=== PATIENT | male | born 1940 | race Caucasian/White ===

== ENCOUNTER 2020-05-03 15:14 | Inpatient (IN) | payer MEDICARE ==
[~2020-05-03] VITALS: Ht 180.3 cm; Wt 106.4 kg
--- NOTE | ~2020-05-03 | EMS ---
[place] [id number] EMS Patient Care Report Name: SHERRY BROOKS Room #: REG SHANICE Fairchild#: [id number] Admission: 05/03/20 Attend Phys: Discharge: Date of : 42 Report #: [id number] THIS REPORT FOR: //name// Report Transmitted: 05/03/2020 16:41 EMS Care Summary [place], [place]/[facility] Incident [id number] @ 05/03/2020 14:31 Incident Location [address] [place] [address] Patient SHERRY BROOKS Male, 79 Years 1940 Patient Address [address] [place] [address] Patient History Hypertension (HTN),Restless Leg Syndrome, Patient Allergies No known allergies, Patient Medications Propranolol, Gabapentin, Hydrochlorothiazide (Hctz), Allopurinol, Chief Complaint ALOC Disposition Transported No Lights/[place] Dispatch Reason Sick Person Transported To [facility] Narrative DISPATCHED EMERGENCY ON A SICK. PUMPER 45 ON SCENE UPON ARRIVAL. 79 Y/O MALE LAYING SUPINE IN BED APPEARING IN NO IMMEDIATE DISTRESS. GCS 11. PT IS NON VERBAL. PT'S SON STATES THAT HE LAST SPOKE WITH PT ON SUNDAY AND CAME TO CHECK ON HIM TODAY AND FOUND HIM IN THE STATE HE IS IN. PT [place] [address] EMS Patient Care Report Name: SHERRY BROOKS Room #: REG [facility].#: [id number] Admission: 05/03/20 Attend Phys: Discharge: Date of : 42 Report #: [id number] AND AMBULATE ON HIS OWN. MOVED WITHOUT INCIDENT TO AMBULANCE VIA STRETCHER. PLACED ON MONITOR. V/S'S OBTAINED. IV ESTABLISHED. TRANSPORTED TO [facility]. REASSESSED ENROUTE. REMAINS GCS 11 AND NON VERBAL. V/S'S CONTINUOUSLY MONITORED ENROUTE. REPORT CALLED TO HOSPITAL. MOVED WITHOUT INCIDENT TO ER HOSPITAL BED 10. PT CARE TRANSFERRED TO ED RN. Initial Vitals @14:53P: 78,R: 16,BP: 187/107,Pain: 0/10,GCS: 11,SpO2: 97,Revised Trauma: 11, @15:02P: 81,R: 18,BP: 164/98,Pain: 0/10,GCS: 15,CO: 0,SpO2: 95,Revised Trauma: 12, @PTAP: 80,GCS: 11,Glucose: 127, Assessments @14:50MENTAL:Confused,SKIN:HEENT:Eyes: Right Pupil: 3-mm,Eyes: Left Pupil: 3-mm,LUNG SOUNDS:ABDOMEN:PELVIS//GI:EXTREMITIES:Capillary Refill: Right Upper: < 2 Sec,Capillary Refill: Left Upper: < 2 Sec,Capillary Refill: Right Lower: < 2 Sec,Capillary Refill: Left Lower: < 2 Sec,PULSE:Radial: 2+ Normal,NEURO:@15:05 Impression Altered Mental Status Procedures @14:543-Lead ECGResponse: UnchangedSucceeded@14:50ALS AssessmentResponse: UnchangedSucceeded@14:51StretcherResponse: Unchanged@14:55Saline Lock 10cc (18 ga) Site: Antecubital-LeftResponse: UnchangedSucceeded Timeline HOME CARE PHYSICAL THERAPIST,BP: / M,PULSE: 80,RR: R,SPO2: Ox,ETCO2: ,B,PAIN: ,GCS: 11, 14:30,Call Received 14:30,Dispatch Notified 14:31,Dispatched 14:36,En Route 14:47,On Scene 14:50,At Patient 14:50,ALS Assessment,Response: UnchangedSucceeded, 14:51,Stretcher,Response: Unchanged 14:53,BP: 187/107 M,PULSE: 78,RR: 16 R,SPO2: 97 Ox,ETCO2: ,BG: ,PAIN: 0,GCS: 11, 14:54,3-Lead ECG,Response: UnchangedSucceeded, 14:55,Saline Lock 10cc 18 ga Site: Antecubital-Left,Response: UnchangedSucceeded, 14:58,Depart Scene 15:02,BP: 164/98 M,PULSE: 81,RR: 18 R,SPO2: 95 Ox,ETCO2: ,BG: ,PAIN: 0,GCS: 15, 15:09,At Destination 15:27,Call Closed [address] [address] EMS Patient Care Report Name: SHERRY BROOKS Room #: REG SHANICE Fairchild#: [id number] Admission: 05/03/20 Attend Phys: Discharge: Date of : 42 Report #: [id number] Disclaimer v1.1 Copyright 2020 [employer] This EMS Care Summary contains data elements from the applicable legal record (which may be displayed differently). It is designed to provide pertinent information for the following purposes: continuity of care, clinical quality, and state data reporting. The complete legal record is available to ED staff and administrators of the receiving hospital in [employer] Patient Tracker. All data is provided "as is."
[2020-05-03 15:15] VITALS: BP 205/145
[2020-05-03 15:45] LABS: BASOPHILS 0.4 % (0.0-2.0); EOSINOPHILS 0.2 % (0.0-3.0); LYMPHOCYTES 14.2 % (24.0-44.0)
[2020-05-03 15:47] LABS: ABSOLUTE NEUTROPHILS 9.6 thou/uL (1.4-8.2); HEMATOCRIT 52.9 % (42.0-52.0); HEMOGLOBIN 18.3 gm/dL (14.0-18.0); MCH 31.7 pg (26.0-34.0); MCHC 34.7 g/dL (28.0-37.0); MCV 91.3 fL (80.0-100.0); PLATELET COUNT 232 thou/uL (150-400); POLYS 79.2 % (36.0-66.0); WBC 12.1 thou/uL (4.0-11.0)
--- NOTE | 2020-05-03 15:49 | NUR ---
PT RETURNED FROM CT
[2020-05-03 15:59] LABS: CALCIUM 9.6 mg/dL (8.5-10.1); CREATININE 1.6 mg/dL (0.7-1.3); POTASSIUM 3.3 mmol/L (3.5-5.1)
[2020-05-03 16:05] LABS: ALBUMIN 3.9 g/dL (3.4-5.0); DIRECT BILIRUBIN 0.3 mg/dL (<0.1-0.2); TOTAL BILIRUBIN 1.8 mg/dL (0.2-1.0); TOTAL PROTEIN 8.2 g/dL (6.4-8.2)
[2020-05-03] MEDS ORDERED: PROPRANOLOL 4040 M1 PO (17:26)
[2020-05-03] MEDS ORDERED: HYDROCHLOROTHIA25 M2 PO (17:26)
[2020-05-03] MEDS ORDERED: NEURONTIN300 MG PO (17:27)
[2020-05-03] MEDS ORDERED: ALLOPURINOL 10100 M3 PO (17:27)
[2020-05-03 17:53] LABS: URINE BILIRUBIN NEGATIVE (Negative); URINE BLOOD NEGATIVE (Negative); URINE CLARITY CLEAR; URINE COLOR YELLOW; URINE GLUCOSE-RANDOM* NEGATIVE (Negative); URINE KETONES 1+ (Negative); URINE LEUKOCYTES-REFLEX NEGATIVE (Negative); URINE NITRITE-REFLEX NEGATIVE (Negative); URINE PROTEIN (DIPSTICK) 2+ (Negative); URINE SPECIFIC GRAVITY >= 1.030 (1.005-1.035)
[2020-05-03 18:08] LABS: BACTERIA-REFLEX 1-9 Few /HPF (None Seen); CASTS None Seen /LPF (None Seen); CRYSTALS None Seen /LPF (None Seen); SQUAMOUS None Seen /LPF (0-3); URINE RBC None Seen /HPF (0-2); URINE WBC-REFLEX 0-5 Rare /HPF (0-5)
[2020-05-03 20:47] VITALS: BP 185/95
[2020-05-03 23:33] VITALS: BP 166/80
[2020-05-04 04:06] LABS: GLYCOHEMOGLOBIN (HGB A1C) 5.8 % (4.8-5.6)
[2020-05-04 04:32] LABS: CHOLESTEROL 223 mg/dL (<200); HDL CHOLESTEROL 28 mg/dL (>40); LDL CHOLESTEROL 159 mg/dL (<100); TRIGLYCERIDE 184 mg/dL (<150); VLDL 37 mg/dL (<40)
[2020-05-04 04:40] VITALS: BP 171/78
[2020-05-04 04:43] LABS: SERUM ASSESSMENT Clear
--- NOTE | 2020-05-04 05:01 | NUR ---
PATIENT ADMITTED FROM ER. INITIAL NIH 20. REVIEWED AND ASSISTED WITH ASSESSMENT AT ADMISSION AND 0400. I AGREE WITH MIGDALIA DICKERSON RN ASSESMENT. PER Beckie HO RN CHARGE NURSE.
--- NOTE | 2020-05-04 06:39 | NUR ---
ADMIT PT ADMITTED VIA ER WITH SUBACUTE CVA VSS, PT ALERT AND AWAKE NIH SCORE OF 20 AT ADMISSION AND AGAIN AT 4 AM. TELE INTACT READING SR. PT REMAINS NPO UNTIL SWALLOW EVAL PT FLACCID ON RIGHT SIDE UNABLE TO HOLD UP ARM OR LEG. DID NOT HAVE A BLINK REFLEX ON RIGHT EYE BUT DID ON LEFT ATTEMPTING TO FOLLOW COMMANDS ABLE TO SMILE WITH SLIGHT RIGHT SIDED FACIAL DROOP UNABLE TO TRACK WITH HIS EYES BUT DID WINK FOR YES ONE TIME. SLIGHT WHEEZING NOTED TO LUNGS INCONTINENT OF URINE. SKIN C/D/I NO OPEN AREAS OR AREAS OF BREAKDOWN NOTED CONTINUE TO MONITOR.
--- NOTE | 2020-05-04 07:19 | EKG ---
[facility] [place] [address] ELECTROCARDIOGRAM REPORT Name: SHERRY BROOKS Room #: 214-P ADM IN M.R.#: [id number] Admission: 05/03/20 Attend Phys: Louis Chawla MD Discharge: Date of : 42 Report #: [id number] THIS REPORT FOR: cc: CARLOS - Paty family physician/PCP CARLOS - Paty family physician/PCP Scott Rasheed MD [facility] THIS REPORT FOR: //name// [facility] ED Test Date: 2020-05-03 Test Time: 17:29:34 Pat Name: SHERRY BROOKS Department: Room: 214 Gender: M Job Molder: no : 1940 Requested By: Darby Pedersen Order Number: [id number] MD: Scott Rasheed Measurements Intervals Heath Rate: 75 P: 7 MS: 203 QRS: -18 QRSD: 97 T: 2 QT: 421 QTc: 471 Interpretive Statements Sinus rhythm No previous ECG available for comparison Electronically Signed On 05-04-2020 7:19:03 DUMP TRUCK DRIVER by Scott Rasheed [email or web address] <ELECTRONICALLY SIGNED> By: Scott Rasheed MD, FACC 05/04/20 0719 28 28 Scott Rasheed MD, FACC /EPI
[2020-05-04 09:26] LABS: INR 1.1; PROTIME 11.5 Seconds (9.3-11.4)
--- NOTE | 2020-05-04 10:34 | NUR ---
WOUND CONSULT; RN TODAY STATED SHE WAS NOT AWARE WHY WOUND CARE WAS CONSULTED STATING, "THE PATIENT HAS NO WOUNDS". RECOMMENDATIONS; I WILL REMOVE THE CONSULT/RECONSULT IF NEEDED. DISCUSSED WITH RN
[2020-05-04 10:54] VITALS: BP 146/97
--- NOTE | 2020-05-04 11:20 | NUR ---
Case opened to follow for dc planning. Pt admitted with CVA and neuro w/u is in progress along with ST/OT/PT/Rehab evaluations. Pt is flaccid on the Rt side and aphasic. He is NPO at this time. He has significant hearing impairment and usually reads lips. He does have 30% hearing in one ear with a hearing aid which his son will try to bring in. Pt sleeping this am and cm assessment completed via phone wih the pt's son Nabor who lives next door to him. Nabor reports that the pt lives indep in his home with his 15 yr old doggie. Nabor checks on him daily and does any shopping,errands or driving pt to appointments. The pt has two dtrs as well that are involved. His son reports that he does not have a living will or DPOA in place. He has made his wishes known to his children. The pt has 6 steps in from the front door but only one through the garage. He has one step in the main living area (sunken living room). He is normally indep with gait and adl's as well as yard work. 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 The pt's pcp is Dr. Ezekiel Goel who he sees yearly. He sees his kidney dr often and he manages his medications. Support provided and cm role introduced. Pt's son is awaiting further imput from Neuro and he is aware that this was a "large stroke". He is concerned about staff being aware of the extent of his hearing impairment as they try to communicate with the pt (especially with masks on). Unit Rn updated. Awaiting additional evaluations and care team recommendations regarding dc planning needs, ie, acute rehab, snf, and or palliative care.
--- NOTE | 2020-05-04 18:14 | NUR ---
ASSUMED CARE OF PT AT SHIFT CHANGE. ASSESSMENTS CHARTED. MEDS GIVEN PER AUG. PT AWAKE MOST OF SHIFT. MAKES EYE CONTACT WHEN SPOKEN TO. DOES NOT FOLLOW COMMANDS. RIGHT SIDE FLACCID, SCORING 21 ON NIH SCALE. FAILED SWALLOW EVAL, STRICTLY NPO. SON DELIBERATING CHANGING CODE STATUS TO DNR. WILL CONTINUE TO MONITOR AND FOLLOW POC.
[2020-05-04 19:05] VITALS: BP 183/107
[2020-05-04 19:06] VITALS: BP 199/101
[2020-05-04 20:00] VITALS: BP 175/103
[2020-05-05] VITALS (9 sets, daily range): BP systolic 143–186; BP diastolic 90–106
--- NOTE | 2020-05-05 04:17 | NUR ---
assumed pt care at the change of shift, pt is awake, alert and oriented, assessments as charted, meds given as per mar, denies having concerns, bp soft this am, asymptomatic, plan to dc to ignite today
--- NOTE | 2020-05-05 06:05 | NUR ---
Assumed pt care at the change of shift, pt is awake, assessments as chartednih scale as documented, sr on the monitor, change in code status noted, remains stable overnight, no acute events, will pass on report
--- NOTE | 2020-05-05 09:41 | NUR ---
PT. WITH PT AT BEDSIDE, HAS OVERALL TONE BUT CONTINUES TO BE FLACCID ON THE RIGHT SIDE. HE DOES RESPOND WITH HIS RIGHT FOOT BY WITHDRAWING WHEN TICKLED. HE HELD A SITTING POSITON FOR A FEW MINUTES THIS AM WITH PT. DOES FOLLOW EYE CONTACT WHEN SPOKEN TO. DOES FOLLOW SIMPLE COMMANDS THIS AM, ASKED TO LOOK OUT WINDOW AND HE DID.
--- NOTE | 2020-05-05 13:08 | 2DMMODE ---
[facility] [address] [place] [address] 2 D/M-MODE ECHOCARDIOGRAM Name: SHERRY BROOKS Room #: 214-P ADM IN M.R.#: [id number] Admission: 05/03/20 Attend Phys: Louis Chawla MD Discharge: Date of : 42 Report #: [id number] THIS REPORT FOR: cc: FAM - No family physician/PCP FAM - No family physician/PCP Reginald Mahan MD ~ APPROVED REPORT Study performed: 05/05/2020 12:14:23 EXAM: Comprehensive 2D, Doppler, and color-flow Echocardiogram Patient Location: Bedside Room #: 214 Status: routine BSA: 2.32 HR: 81 bpm BP: 143/90 mmHg Rhythm: NSR Other Information Study Quality: Technically DifficultTechnically Limited Technically limited study due to inability to position patient, limited imaging windows. Indications CVA/TIA Echo Enhancing Agent Indication: Rule out Shunt Agent(s) / Amount(s) Used: Agitated Saline 7 cc Aortic Valve AoV Peak Lito.: 0.98 m/s AO Peak Gr.: 3.86 mmHg LVOT Max P.08 mmHg LVOT Max V: 1.01 m/s Mitral Valve E/A Ratio: 0.7 MV Decel. Time: 335.21 ms MV E Max Lito.: 0.69 m/s MV A Lito.: 1.00 m/s MV PHT: 97.21 ms IVRT: 129.18 ms [facility] [address] [place] [address] 2 D/M-MODE ECHOCARDIOGRAM Name: SHERRY BROOKS Room #: 214-P ADM IN M.R.#: [id number] Admission: 05/03/20 Attend Phys: Dillan Johnston Discharge: Date of : 41 Report #: [id number] Pulmonary Vein P Vein S: 0.46 m/s P Vein A: 0.28 m/s P Vein D: 0.34 m/s P Vein A Dur.: 110.7 msec P Vein S/D Ratio: 1.35 Left Ventricle The left ventricle is normal size. There is normal LV segmental wall motion. There is normal left ventricular wall thickness. Left ventricular systolic function is normal. The left ventricular ejection fraction is within the normal range. LVEF is 55-60%. Grade I - abnormal relaxation pattern. Right Ventricle The right ventricle is normal size. The right ventricular systolic function is normal. Atria The left atrium size is normal. Interatrial septum is intact without evidence of ASD or PFO. The right atrium size is normal. Aortic Valve The aortic valve is normal in structure. No aortic regurgitation is present. There is no aortic valvular stenosis. Mitral Valve The mitral valve is normal in structure. There is no mitral valve regurgitation noted. No evidence of mitral valve stenosis. Tricuspid Valve The tricuspid valve is normal in structure. There is no tricuspid valve regurgitation noted. Pulmonic Valve The pulmonary valve is normal in structure. There is no pulmonic valvular regurgitation. Great Vessels The aortic root is normal in size. IVC is not well visualized. Pericardium There is no pericardial effusion. <Conclusion> The left ventricle is normal size. LVEF is 55-60%. [facility] [address] [place] [address] 2 D/M-MODE ECHOCARDIOGRAM Name: SHERRY BROOKS Room #: 214-P ADM IN [facility].#: [id number] Admission: 05/03/20 Attend Phys: Dillan Johnston Discharge: Date of : 42 Report #: [id number] The aortic valve is normal in structure. The mitral valve is normal in structure. The tricuspid valve is normal in structure. The pulmonary valve is normal in structure. There is no pericardial effusion. Interatrial septum is intact without evidence of ASD or PFO. <ELECTRONICALLY SIGNED> By: Reginald Mahan MD 05/05/20 1308 1308 07 Reginald Mahan MD /INF
--- NOTE | 2020-05-06 03:49 | NUR ---
BP ELEVATED.LABETALOL AND METOPROLOL ON BOARD.TURN Q2 HOURS.MONITOR SHOWS SR.POC CONTINUED.
[2020-05-06 04:16] VITALS: BP 193/105
[2020-05-06 07:40] VITALS: BP 189/107
--- NOTE | 2020-05-06 11:04 | HC ---
[facility] [address] [place] [address] CONSULTATION Name: SHERRY BROOKS Room #: 214-P ADM IN M.R.#: [id number] Admission: 05/03/20 Attend Phys: Louis Chawla MD Discharge: Date of : 42 Report #: [id number] THIS REPORT FOR: cc: FAM - No family physician/PCP FAM - No family physician/PCP Oscar Villafuerte MD ~ DATE OF SERVICE: 05/04/2020 We were asked by Dr. Chawla to see the patient. HISTORY OF PRESENT ILLNESS: The patient is a 79-year-old with a recent stroke. The patient was admitted 05/03/2020. He presented to the Emergency Department via [facility]. The patient is aphasic and the history is obtained through the chart. According to the Emergency Department note, the patient's son found the patient unresponsive in his bed. The patient had been last seen to be normal 3 days prior by the son. Since admission, the patient has had imaging studies that show a moderate sized area of decreased attenuation in the left frontal lobe and left basal ganglia suggestive of a subacute infarct without mass effect or hemorrhage. 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 MRI/MRA shows similar findings and the intracranial carotids with low flow on the left side and normal flow on the right, but the MRI/MRA does not show the cervical portion of the carotid artery. PAST HISTORY: Significant for hypertension and restless leg. MEDICATIONS AT HOME: Includes propranolol, hydrochlorothiazide, gabapentin, and allopurinol. ALLERGIES: None known. REVIEW OF SYSTEMS: I have no reason to defer with the chart and patient is aphasic. PHYSICAL EXAMINATION: GENERAL: The patient is sitting in bed. He appears alert, but is aphasic. VITAL SIGNS: Temperature 36.2, heart rate 71, respiratory rate 16, blood pressure 146/97, pulse ox 98 on room air. HEENT: No scleral icterus, no arcus. NECK: No mass. I hear no bruit. CHEST: Clear to auscultation. HEART: Rhythm regular. [facility] [address] [place] [address] CONSULTATION Name: SHERRY BROOKS ALEA Room #: 214-P [facility] IN M.R.#: [id number] Admission: 05/03/20 Attend Phys: Louis Chawla MD Discharge: Date of : 42 Report #: [id number] ABDOMEN: Soft. EXTREMITIES: No clubbing, cyanosis or edema, 2+ dorsalis pedis pulses distally. SKIN: No rash or infection. NEUROLOGIC: No motion on the right arm, left leg has some motion, but the patient cannot plantar flex forcibly on the right side. Left side appears normal for strength and motion in upper and lower extremities. As mentioned, the patient is aphasic, but appears to understand and responds appropriately to the extent that he can with motion. 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 We do not have good imaging study, however, and it might be appropriate to obtain a CT angiogram of the head and neck to include the cervical carotids. Certainly, there is no urgency about this as we would wait at least 4-6 weeks before doing any sort of revascularization. The total occlusion of course would not be the target of surgery, but rather the right side to reduce the risk of additional stroke and that of course would be only embarked upon with the family discussion. Thank you for the consult. <ELECTRONICALLY SIGNED> By: Oscar Villafuerte MD 05/06/20 1104 1624 0215 Oscar Villafuerte MD /nt
[2020-05-06 11:15] VITALS: BP 202/93
[2020-05-06 15:35] VITALS: BP 170/88
[2020-05-06 19:30] VITALS: BP 181/82
[2020-05-07 04:30] VITALS: BP 186/108
--- NOTE | 2020-05-07 07:51 | NUR ---
CARE ASSUMED 1900. PT NONE VERBAL. BP ELEVATED. NO FEVER. NO APPPARENT PAIN. WILL CONTINUE WITH POC
[2020-05-07 08:00] VITALS: BP 17/102
[2020-05-07 08:27] LABS: HEMATOCRIT 50.4 % (42.0-52.0); HEMOGLOBIN 16.9 gm/dL (14.0-18.0); MCH 31.2 pg (26.0-34.0); MCHC 33.5 g/dL (28.0-37.0); MCV 93.1 fL (80.0-100.0); RBC 5.42 mil/uL (4.50-6.00); RDW 14.1 % (10.5-14.5); WBC 11.4 thou/uL (4.0-11.0)
[2020-05-07 08:37] LABS: CALCIUM 9.2 mg/dL (8.5-10.1); CREATININE 1.4 mg/dL (0.7-1.3); POTASSIUM 3.8 mmol/L (3.5-5.1)
--- NOTE | 2020-05-07 11:14 | NUR ---
Case discussed with the care team. Pt is now a DNR. Family (son/2dtrs) discussing peg placement and prognosis over the weekend. Neuro, GI and the attending have talked with the pt's son. Will follow for rehab/snf/hospice referrals pending the plan of care.
[2020-05-07 11:35] VITALS: BP 174/109
[2020-05-07 15:30] VITALS: BP 198/103
--- NOTE | 2020-05-07 17:50 | NUR ---
PT ALERT, NON VERBAL, VSS, NO APPARENT PAIN. PATIENT REPOSITIONED OFTEN. MEDS GIVEN ORDERED. PATIENT REFUSED DOBHOFF TODAY, DOCTOR AWARE. EXTERNAL CATH PATENT. PATIENT FLACCID RIGHT SIDE OF BODY. IV PATENT, FLUIDS RUNNING. BLOOD PRESSURE HIGH, DOCTOR AWARE. SON AT BEDSIDE. NO SIGNS OF DISTRESS. WILL CONTINUE TO MONITOR.
[2020-05-07 20:30] VITALS: BP 194/85
[2020-05-08] VITALS (24 sets, daily range): BP systolic 135–204; BP diastolic 80–113
--- NOTE | 2020-05-08 07:30 | NUR ---
ALERT, DOES NOT FOLLOW ANY COMMANDS. APHASIC AT THIS TIME. BP MANAGED PER PHYSICIAN ORDER. NEW ORDER RECEIVED FOR FEVER WITH RELIEF. NO S/S ACUTE DISTRESS NOTED OR REPORTED AT THIS TIME. CARE TRANSFERRED TO ANA LUISA DEXTER
[2020-05-09] VITALS (7 sets, daily range): BP systolic 151–166; BP diastolic 84–108
--- NOTE | 2020-05-09 03:44 | NUR ---
CARE ASSUMED AT 1900. PT LETHERGIC AND SLEEPY. ON CARDENE DRIP. PT DOES NOT FOLLOW COMMDANDS. Q2 TURNS. PT MORE AWAKE THE NIGHT WENT BY. ABLE TO MOVE LEFT SIDE BUT FLACCID TO THE RIGHT. WILL CONTINUE TO MONITOR AND FOLLOW POC.
--- NOTE | 2020-05-09 10:52 | HC ---
[facility] [address] [place] [address] CONSULTATION Name: SHERRY BROOKS Room #: 214-P ADM IN M.R.#: [id number] Admission: 05/03/20 Attend Phys: Louis Chawla MD Discharge: Date of : 42 Report #: [id number] THIS REPORT FOR: cc: FAM - No family physician/PCP FAM - No family physician/PCP Ramirez Mccann MD ~ DATE OF SERVICE: 05/03/2020 HISTORY OF PRESENT ILLNESS: This is a 79-year-old male patient who is unable to provide any history at all. I talked to Emergency Room physician, Dr. Pedersen before coming to see this patient and after seeing this patient. I called the patient's son. The patient was living independently. The son left town on Sunday and the patient was doing fine. He came back this morning and he went to see him and he was snoring, but he thought he was sleeping, but he left for the work. When he came back from the work, he still did not respond and he got worried. At that time, he tried to wake him up, he could not wake him up and he was having urine and feces all over. He was not moving the right side and he called an ambulance. He was brought to Emergency Room and his CT scan of the head was done. That demonstrated a large stroke on the left cerebral hemisphere. I reviewed the images and it does show a large stroke. His creatinine was high. Therefore, an MRI and MRA were ordered, which is pending. A carotid Doppler was also ordered. REVIEW OF SYSTEMS: A 14-point review of system was carried out. The patient does not drive, but he was functional. Otherwise, he was able to take care of his day-to-day activities. He does have a history of restless leg syndrome. He does take medication for hypertension. His blood pressure has fluctuated some and he did get some medication when he was down here. That was his relevant 14-point review of system. 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 They said leave it alone. FAMILY HISTORY: Unremarkable. SOCIAL HISTORY: He does not smoke or drink alcohol. PHYSICAL EXAMINATION: Indicates he is alert, but he is aphasic. He does not follow any command and he does not understand anything. He has no speech. Examination is difficult because of that. He was seen moving the left side by Emergency Room, but not the right side. To me, he did not do anything. Cardiac examinations appear noncontributory. No respiratory difficulty was noticed. CT scan demonstrated a stroke, which is already there. [facility] [address] [place] [address] CONSULTATION Name: TODDSHERRY COSBY Room #: 214-P [facility] IN M.R.#: [id number] Admission: 05/03/20 Attend Phys: Louis Chawla MD Discharge: Date of : 42 Report #: [id number] IMPRESSION AND PLAN: This patient has a large left hemispheric cerebrovascular accident. The last seen well was Sunday. CT scan already shows the stroke indicating that, that portion of the brain is permanently destroyed. Doing the workup will serve limited purpose because this patient is not any intervention candidate. His prognosis for reasonable medical recovery is very guarded. I discussed all of it with the patient. We will look at the MRI when it is done. We will look for any atrial fibrillation. We will get an echocardiogram done. We will get PT, OT, speech and rehab evaluation. We will see if he does show any improvement after hydration. More than 50 minutes of time was spent taking care of this patient today and majority was spent counseling and coordinating. <ELECTRONICALLY SIGNED> By: Ramirez Mccann MD 05/09/20 1052 24 99 Ramirez Mccann MD /nt
--- NOTE | 2020-05-09 20:21 | NUR ---
ASSUMED CARE AT CHANGE OF SHIFT. PT AWAKE/ALERT, APHASIA WITH STRICT NPO. SBP TO REMAIN BETWEEN 140-160 WITH CARDENE DRIP PER PROTOCOL.NO SIGN OF SOB OR PAIN. FERNANDO IN PLACE. FLACID TO RIGHT SIDE. PEG TUB TO BE PLACED TOMORROW BY GI. FALL PRECATION IN PLACE. STAFF TO ANTICIPATE NEEDS.
[2020-05-10] VITALS (11 sets, daily range): BP systolic 111–158; BP diastolic 73–98
[2020-05-10 11:29] LABS: HEMATOCRIT 52.5 % (42.0-52.0); HEMOGLOBIN 17.6 gm/dL (14.0-18.0); MCH 31.8 pg (26.0-34.0); MCHC 33.5 g/dL (28.0-37.0); MCV 94.9 fL (80.0-100.0); RBC 5.54 mil/uL (4.50-6.00); RDW 14.5 % (10.5-14.5); WBC 14.7 thou/uL (4.0-11.0)
[2020-05-10 11:37] LABS: CREATININE 1.7 mg/dL (0.7-1.3); POTASSIUM 3.2 mmol/L (3.5-5.1)
--- NOTE | 2020-05-10 12:54 | NUR ---
When PEG ready for use, recommend jevity 1.5 to start 30ml/hr and progress to goal of 55ml/hr. If no feeding pump available, use gravity drip method 1300ml of formula over 24 hr period as goal or bolus 6 cartons per day if approved by GI. Once IVF discontinued, start water flush of 250ml every 6hr
--- NOTE | 2020-05-10 14:43 | HC ---
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 Neurology is following. Reason for GI consultation is for possible PEG tube. The patient has swallowed a video swallow now 3 times in the last few days. He is currently on IV fluids for hydration. His son is present in the room. The patient is unable to give any history. PAST MEDICAL HISTORY: Hypertension, CVA, history of restless leg syndrome. ALLERGIES: No known drug allergies. REVIEW OF SYSTEMS: Unobtainable due to the patient's aphasia. CURRENT MEDICATIONS: Aspirin, Lovenox, Lipitor, metoprolol, labetalol, Pepcid, IV fluids, Zofran p.r.n., Tylenol p.r.n. FAMILY HISTORY: Unknown. PHYSICAL EXAMINATION: VITAL SIGNS: Temperature is 36.9, pulse 76, blood pressure is 189/107, respiratory rate is 20. GENERAL: He is aphasic. His eyes are open. He does not appear to be in any acute distress. HEENT: Sclerae nonicteric. Oropharynx is clear. NECK: Supple. CARDIOVASCULAR: Regular rate. CHEST: Clear to auscultation anteriorly bilaterally. ABDOMEN: Soft, obese, nontender, nondistended. EXTREMITIES: No cyanosis, clubbing or edema. LABORATORY DATA: WBC is 12.1, hemoglobin 18.3, platelet count is 232. INR 1.1. Sodium is 136, potassium 3.8, chloride 99, bicarb 26, BUN 26, creatinine 1.6. Total bilirubin is 1.8, direct bilirubin 0.3, AST 34, ALT is 36, alkaline [address] [address] CONSULTATION Name: SHERRY BROOKS Room #: 214-P [facility] IN M.R.#: [id number] Admission: 05/03/20 Attend Phys: Louis Chawla MD Discharge: Date of : 41 Report #: [id number] phosphatase 98, albumin 3.9. Triglycerides are 184. ASSESSMENT AND PLAN: 1. Dysphagia secondary to recent cerebrovascular accident. I had a long discussion with the patient's son today regarding possible PEG tube. Per Neurology note, patients with this type of stroke can improve from a swallowing function standpoint at times fairly quickly. However, he has now failed swallow study 3 times. I explained potential options to the patient's son including possible Dobhoff temporarily to be used while continuing to monitor his swallow function capabilities; however, need to realize the patient could easily pull this out as he still has some function. 2. Proceed with EGD with PEG tube tomorrow. We are leaning towards that. We will tentatively plan on possible PEG tube tomorrow, but we will also discuss somewhat further with Neurology. We will need to COVID test the patient today Thank you for allowing me to participate in his care. <ELECTRONICALLY SIGNED> By: Gonzalez Mcarthur MD 05/10/20 [id number] [id number] Gonzalez Mcarthur MD /nt
--- NOTE | 2020-05-10 16:02 | NUR ---
patient rec peg tube placement today. Discussed with son post acute care and left list of t insurance contracted facilities in room. Son to visit today.
--- NOTE | 2020-05-10 20:44 | NUR ---
ASSUMED CARE PT SHIFT CHANGE. ASSESSMENTS CHARTED.MEDS GIVEN PER AUG. PT AWAKE AND ALERT, NONRESPONSIVE. DOES NOT FOLLOW COMMANDS. PEG TUBE PLACED SUCCESSFULLY. COVERED WITH ABD. FAMILY UPDATED ON POC. CARDENE GTT DC'D BP REMAINED STABLE. PT SHOWING S/SX OF PAIN IN LEFT LEG, IV PAIN MEDS GIVEN WITH NOTABLE RELIEF. SON AT BEDSIDE TOWARDS EVENING TIME. UOP ADEQATE. PT LAYING IN BED AWAKE IN NAP. REPORT GIVEN TO OSBALDO OROSCO.
[2020-05-11] VITALS (12 sets, daily range): BP systolic 121–157; BP diastolic 68–96
--- NOTE | 2020-05-11 03:38 | NUR ---
PT REMAINS NONE VERBAL DUE TO APHASIA. HE IS ALSO NPO. GOAL FOR BLOOD PRESSURE MANAGEMENT. PT WAS NOTED TO HAVE INCREASED RESPIRATIONS. WHEN ASKED WHETHER HE WAS IN PAIN, PT NODED HIS HEAD LIGHTLY. FENTANYL X 1 PRN GIVEN. PEG TUBE ACCESS YESTERDAY FOR NOC MEDICATIONS. NO SWELLING OR BLEED NOTED AROUND THE PEG TUBE. WILL CONTINUE TO MONITOR AND FOLLOW POC.
[2020-05-11 05:33] LABS: CREATININE 1.5 mg/dL (0.7-1.3); MAGNESIUM 2.4 mg/dL (1.8-2.4); POTASSIUM 3.2 mmol/L (3.5-5.1)
--- NOTE | 2020-05-11 15:27 | NUR ---
Spoke with son Nabor English regarding post acute care. He has family who works in hospice industry and friends in healthcare. he is reviewing list with family for input. Asked phys to call with update and dc timeframe
[2020-05-12] VITALS (7 sets, daily range): BP systolic 87–127; BP diastolic 52–94
[2020-05-12 00:54] LABS: CALCIUM 8.6 mg/dL (8.5-10.1); POTASSIUM 3.7 mmol/L (3.5-5.1)
[2020-05-12 03:12] LABS: HEMATOCRIT 49.8 % (42.0-52.0); HEMOGLOBIN 16.4 gm/dL (14.0-18.0); MCH 31.5 pg (26.0-34.0); MCV 95.5 fL (80.0-100.0); RBC 5.21 mil/uL (4.50-6.00); RDW 14.6 % (10.5-14.5); WBC 10.3 thou/uL (4.0-11.0)
--- NOTE | 2020-05-12 03:25 | NUR ---
ASSUMED CARE AT 1900. PT NONE VERBAL, UNABLE TO ASSESS MENTATION. PT SEE TO BE IN DISTRESS. TACHYPNEIC AND OCCASSIONALLY MOANING. PRN FENTANYL GIVEN. PT ALSO HAD A FEVER OF 101.5. INVESTMENT ACCOUNTANT NOTIFIED FOR BLOOD CULTURES. PT IS ON D5W AT 125/HR. IN 8 HOURS, PT HAD ONLY AN OUTPUT OF 150 CC DARK AND CONCENTRATED. BUN 44, CR 2.0. INVESTMENT ACCOUNTANT NOTIFIED. NO NEW ORDERS RECEIVED. WILL CONTINUE TO ASSESS ANY SIGNS ON PAIN AND MONITOR TEMP. TUBE FEEDING AT 50CC/HR WELL TOLERATED. NO RESIDUALS. WILL CONTINUE TO MONITOR
[2020-05-12 14:40] LABS: URINE BILIRUBIN NEGATIVE (Negative); URINE BLOOD 2+ (Negative); URINE CLARITY CLEAR; URINE COLOR YELLOW; URINE GLUCOSE-RANDOM* NEGATIVE (Negative); URINE KETONES NEGATIVE (Negative); URINE LEUKOCYTES-REFLEX NEGATIVE (Negative); URINE NITRITE-REFLEX NEGATIVE (Negative); URINE PROTEIN (DIPSTICK) NEGATIVE (Negative); URINE SPECIFIC GRAVITY 1.015 (1.005-1.035); URINE UROBILINOGEN 0.2 E.U./dl (0.2-1.0)
[2020-05-12 14:47] LABS: BACTERIA-REFLEX None Seen /HPF (None Seen); CRYSTALS None Seen /LPF (None Seen); SQUAMOUS None Seen /LPF (0-3); URINE RBC >20 Many /HPF (0-2); URINE WBC-REFLEX None Seen /HPF (0-5)
--- NOTE | 2020-05-12 15:00 | NUR ---
Spoke with son who reviewed skilled list. He is interested in [facility] in [facility]. [phone] p fax. DC development planner Faxed referral packet for review. Patient spiking fevers today not stable for transfer.
[2020-05-12 16:39] LABS: CALCIUM 8.3 mg/dL (8.5-10.1); CREATININE 2.5 mg/dL (0.7-1.3); POTASSIUM 3.9 mmol/L (3.5-5.1)
--- NOTE | 2020-05-12 17:27 | P ---
[facility] [place] [address] PROCEDURE REPORT Name: SHERRY BROOKS Room #: 214-P [facility] IN M.R.#: [id number] Admission: 05/03/20 Attend Phys: Louis Chawla MD Discharge: Date of : 41 Report #: [id number] THIS REPORT FOR: cc: CARLOS - No family physician/PCP CARLOS - No family physician/PCP Gonzalez Mcarthur MD ~ CC: Louis Chawla MD [facility] physician/PCP DATE OF SERVICE: 05/10/2020 PROCEDURE PERFORMED: Upper endoscopy with PEG tube placement. 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 The patient has failed a swallow study several times since admission. Plan is for PEG tube placement for nutritional support. DESCRIPTION OF PROCEDURE: The risks and benefits of the procedure were explained to the patient's son, those risks including but not limited to bleeding, perforation and the risk of sedation as well as the potential risk for infection. He understood these risks and gave informed consent. One gram of Ancef was given prior to the procedure. Sedation was given using propofol per anesthesia. Next, using a standard Olympus upper endoscope, the scope was placed in the patient's mouth and advanced under direct vision through the esophagus, stomach and into the second portion of the duodenum. The esophagus was normal throughout the GE junction was normal. Overall, the gastric mucosa was normal. The pylorus was normal and patent. The duodenal bulb, first and second portion were all normal. The scope was then brought back up into the patient's stomach and the stomach was insufflated with air. Good transillumination was noted through the anterior abdominal wall. The skin was then marked and prepped with chlorhexidine solution and a sterile drape was put in place. Next, Xylocaine was used as a local anesthetic. Next, using a seeker needle, the needle was advanced through the anterior abdominal wall into the gastric lumen under direct vision without difficulty. The needle was then removed. A 1 cm transverse incision was then made through the skin. Next, using a catheter needle, the needle was advanced through the mid portion of the incision again through the anterior abdominal wall under direct vision. The needle was removed leaving the catheter in place. Next, a blue guidewire was inserted through the catheter. This was grasped through the endoscope with the snare and brought back up through the patient's mouth with the scope. Next, a 20-Cypriot PEG tube was then secured to the blue guidewire and using a pull technique, was put into supine position without difficulty. Next, the scope was reintroduced into the patient's stomach. The PEG tube bumper was noted to be in good position in the mid body of the stomach. The scope was then withdrawn. [address] [address] PROCEDURE REPORT Name: SHERRY BROOKS ALEA Room #: 214-P [facility] IN M.R.#: [id number] Admission: 05/03/20 Attend Phys: Louis Chawla MD Discharge: Date of : 42 Report #: [id number] The PEG tube was then secured to the anterior abdominal wall and the procedure terminated. The patient tolerated the procedure well. IMPRESSION: Normal upper endoscopy, status post PEG tube placement as described above. RECOMMENDATIONS: Okay to start using PEG tube later tonight for tube feeds and medications. Thank you for allowing me to participate in his care. <ELECTRONICALLY SIGNED> By: Gonzalez Mcarthur MD 05/12/20 1727 [id number] Gonzalez Mcarthur MD /nt
--- NOTE | 2020-05-12 18:20 | NUR ---
ASSUMED CARE PT SHIFT CHANGE. ASSESSMENTS CHARTED.MEDS GIVEN PER AUG. PT AWAKE, NONRESPONSIVE. PT DOES NOT FOLLOW COMMANDS. PT SHOWS S/SX PAIN WHEN LEFT EXTREMITY MOVED. MANAGED WITH IV PAIN MEDS. PT TACHYPNEIC AND FEBRILE THIS AM. PHYSICIAN NOTIFIED. LASIX ADMINISTERED WITH SOME RELIEF. IV ABX GIVEN PER ORDERS. PT SAT UPRIGHT, MOUTH CLEANED AND SUCTIONED. TUBE FEEDS CONTINUE, NOW AT GOAL RATE OF 55 TOLERATING WELL WITH LOW RESIDUALS. UOP ADEQUATE REFER TO I&O. HEAD CT THIS SHIFT REFER TORESULTS. FAMILY AT BEDSIDE IN EVENING TIME. PLAN FOR DR HASSAN CONSULT IN AM. PT CURRENTLY SITTING UP IN BED, APPEARS COMFORTABLE IN NO APPARENT DISTRESS. O2 SATS WNL ON RA. WILL PASS ON REPORT TO OSBALDO OROSCO.
[2020-05-13 04:22] VITALS: BP 135/79
--- NOTE | 2020-05-13 08:00 | NUR ---
ASSUME CARE 1900. PT/VITALS STABLE. VERY P[OOR TOLERANCE TO ACTIVITY. PT/OT CONSULTED FOR EVAL/TX. PT FEBRILE UP TO 101.3 AT MIDNIGHT. TYLENOL GIVEN, TEMP DOWN TO 99.8. UNABLE TO ASSESS LOL BUT PT TRACTS WHEN NAME IS CALLED AND FOLLOWS SOME COMMANDS. FOR EXAMPLE, PT HELPED WITH TURNING TO THE RIGHT AND HELP ON TO SIDERAIL WHILE BEING CLEANED. PT ALSO, OPENED HIS MOUTH FOR MOUTH CARE WELL TO TAKE TEMP. GOOD MOVEMENT WITH LUE BUT LIMITED MOV'T WITH LLE/FLACCID RUE AND RLE. NO DISTRESS NOTED THROUGH THE NIGHT. ADEQUATE REST NOTED. SR ON MONTITOR. TOLERATING TUBE FEEDING WELL WITH NO RESIDUALS NOTED AND RUNNING AT GOAL RATE. SLOW PROGRESS WITH POC. PLAN IS CONSULT PALLIATIVE CARE AND CONTINUE TO MONITOR AND MANAGE LOC. ALSO, CONTINUE WITH ABX THERAPY. WILL CONTINUE TO MONITOR AND FOLLOW WIHT POC
[2020-05-13 08:10] VITALS: BP 146/74
[2020-05-13 10:16] LABS: CALCIUM 8.8 mg/dL (8.5-10.1); CREATININE 2.5 mg/dL (0.7-1.3); POTASSIUM 3.8 mmol/L (3.5-5.1)
--- NOTE | 2020-05-13 11:17 | NUR ---
PT. CONTINUES TO GURGLE SOUNDS HE CANNOT CLEAR HIS SECRETIONS IWTH ANY REAL THROAT STRENGTH. TRACKS VISUALLY A LITTLE IF YOU ARE STANDING ON HIS LEFT SIDE. STRENGTH IS VERY WEAK. TUBE FEEDINGS RESIDUAL LOW ONLY 5ML THIS AM.
[2020-05-13 11:21] VITALS: BP 134/79
--- NOTE | 2020-05-13 15:46 | NUR ---
REFERRAL FAXED TO [facility] SPOKE WITH HÉCTOR IN ADM SHE RECEIVED REFERRAL ALBINA (FREDERICK) WAS HER TO SPEAK WITH HER OVER THE PHONE AND UPDATED HER ON DC PLAN. SHE WILL HOLD ONTO REFERRAL WILL F/U WITH HER TOMORROW.
--- NOTE | 2020-05-13 15:52 | NUR ---
SNF referral sent to [facility] per the ct senior planner. Tamiko in admissions updated on pt's condition today. Palliative care consult pending. She indicates that the pt's niece works in their building with a hospice agency. They may be able to accept the pt for a short snf stay and/or ltc with hospice but they will need to review and talk with the family. Palliative care consult pending. Outside the hospital DNR form on the chart for son's signature and letter from the attending and Dr. Monzon on the chart as well. Pt with fever and likely aspiration pneumonia. Tolerating peg tube feedings. Neuro has visited with the son regarding the pt's prognosis. Awaiting imput from palliative care and the family. Will followup with all parties tomorrow.
[2020-05-13 16:00] VITALS: BP 150/85
[2020-05-13 19:34] VITALS: BP 135/86
[2020-05-14 00:20] VITALS: BP 136/77
[2020-05-14 03:47] VITALS: BP 155/81
--- NOTE | 2020-05-14 06:07 | NUR ---
ASSUMED PT CARE AT THE CHNAGE OF SHIFT, PT IS AWAKE, DOESNT FOLLOW COMMANDS, CAN DRAG WITH EYES, SR ON THE MONITOR, ASSESSMENTS CHARTED, NOTED GRIMANCING WITH MOVEMENT OF THE LEFT LEG, PAIN MEDICINE GIVEN PER MAR WITH RELIEF, TUBE FEEDING AT GOAL, TOLERATION WELL, NO RESIDUAL NOTED, REMAINS ON RA, VSS, BS STABLE, ADEQUATE URINE OUTPUT FROM FERNANDO, AFEBRILE, SLEEPING AT THIS TIME, NO CONCERNS, WILL PASS ON REPORT
[2020-05-14 08:00] VITALS: BP 171/86
[2020-05-14 09:35] LABS: POTASSIUM 3.9 mmol/L (3.5-5.1)
--- NOTE | 2020-05-14 10:45 | NUR ---
LARGE BM OBTAINED SOFT FOPRMED AND CLEANED UP. BOTTOM DOES HAVE SMALL BLISTER AT APEX OF HIS RECTUM WILL MONITOR. TOTAL BED BATH GIVEN ALL LINENS CHANGED OUT.
[2020-05-14 11:15] VITALS: BP 131/67
--- NOTE | 2020-05-14 12:52 | NUR ---
PER NURSING, Pt IS BEING PLACED ON PALLIATIVE CARE. O.T. IN ACUTE CARE SETTING IS NO LONGER APPROPRIATE AND IS DISCHARGED FROM FURTHER O.T. SERVICES.
--- NOTE | 2020-05-14 13:16 | NUR ---
Pt TO BE D/C FROM ACUTE P.T. SERVICES DUE TO FAMILY DECISION TO PROCEED WITH PALLIATIVE CARE. PT WITH MINIMAL ABILITY TO PARTICIPATE IN P.T. INTERVENTIONS OVER THE PAST WEEK.
--- NOTE | 2020-05-14 14:31 | NUR ---
Case discussed with the care team. Dr. Reddy, Palliative care will be talking with the pt's son/dtrs this evening. Mgmt Specialist spoke with the pt's son Nabor. He was here yesterday and did sign the outside the hospital DNR form. He is aware of palliative care recommendations but notes family with questions about his prognosis and chances for some level of recovery. He will try to get his sisters on a conference call with Dr. Reddy this evening to include them in discussion. He notes that they have not located any DPOA or Advanced Directive documents for the pt. He is open to discussion of comfort care/hospice if no hope of recovery per the pt's expressed wishes in the past. [facility] is not sure they can accept the pt for SNF as he has had minimal participation in therapy sessions. They also would need to discuss the financial situation with family for a [employer] care bed as the pt has resources (family might need to get guardianship to access). Message left for Tamiko in admissions. Will follow.
[2020-05-14 16:00] VITALS: BP 132/96
--- NOTE | 2020-05-14 19:52 | NUR ---
DR. HASSAN SPOKE WITH SON THIS EVENING HE IS READY TO BEGIN PALLATIVE CARE HE TOLD ME BEFORE HE LEFT THE UNIT NOW AND HIS FAMILY IS IN AGREEMENT. FEEDING'S HAD A RESIUDAL 0F 10ML SO HELD PER VERBALORDER FOR ONE HOUR AND RECHECK IN ONE HOUR.
[2020-05-14 20:00] VITALS: BP 149/83
[2020-05-15] VITALS (7 sets, daily range): BP systolic 118–161; BP diastolic 78–94
--- NOTE | 2020-05-15 02:51 | NUR ---
ASSUMED PT CARE AT AROUND 1915, PT IS AWAKE, ALERT, DOESNT FOLLOW COMMANDS, ASSESSMENTS CHARTED, SR ON THE MONITOR, TF WAS OFF, NO RESIDUAL NOTED, TF RESTARTED, 25CC RESIDUAL NOTED AN HR LATER, TF TURNED OFF, ABDOMEN IS SOFT,BOWEL SOUNDS ACTIVE, ADEQUATE OUTPUT FROM FERNANDO, PAIN MEDICINE GIVEN FOR LEFT LEG PAIN WITH RELIEVE, NO CONCERNS AT THIS TIME, PLAN FOR PALLIATIVE CARE, WILL CONTINUE TO MONITOR
--- NOTE | 2020-05-15 19:46 | NUR ---
PT CARE ASSUMED AT 0700. ASSESSMENT CHARTED. MEDICATIO CHARTED. LFA IV. FERNANDO. TUBE FEEDING: JEVITY 1.5 AT 30/50. 200 ML FLUSH Q6. POSSIBLE PALLIATIVE CARE.
[2020-05-16] VITALS (8 sets, daily range): BP systolic 146–172; BP diastolic 90–106
--- NOTE | 2020-05-16 08:02 | NUR ---
ASSSUMED PT CARE AT THE CHANGE OF SHIFT, PT IS AWAKE, NO CHNAGE IN NEURO STATUS, ASESSMENTS CHARTED, MEDS GIVEN PER MAR, NO RESUDUAL NOTED FROM TUBE FEEDING, TF INCREASED TO 40, PT TOLERATING WELL, ADEQUATE URINE OUTPUT FROM FERNANDO, NO ACUTE DISTRESS NOTED, PASSED ON REPORT
[2020-05-16 11:39] LABS: ABSOLUTE NEUTROPHILS 8.1 thou/uL (1.4-8.2); BASOPHILS 0.6 % (0.0-2.0); EOSINOPHILS 2.6 % (0.0-3.0); LYMPHOCYTES 13.2 % (24.0-44.0); MCH 31.5 pg (26.0-34.0); MCHC 33.3 g/dL (28.0-37.0); MCV 94.7 fL (80.0-100.0); MONOCYTES 9.7 % (1.0-8.0); PLATELET COUNT 251 thou/uL (150-400); POLYS 73.9 % (36.0-66.0); RBC 5.07 mil/uL (4.50-6.00); WBC 10.9 thou/uL (4.0-11.0)
[2020-05-16 12:01] LABS: ALBUMIN 2.1 g/dL (3.4-5.0); CALCIUM 10.2 mg/dL (8.5-10.1); CREATININE 1.7 mg/dL (0.7-1.3); MAGNESIUM 2.6 mg/dL (1.8-2.4); POTASSIUM 4.1 mmol/L (3.5-5.1); TOTAL BILIRUBIN 0.9 mg/dL (0.2-1.0); TOTAL PROTEIN 7.5 g/dL (6.4-8.2)
--- NOTE | 2020-05-16 13:55 | NUR ---
PT CARE ASSUMED A 0700. ASSESSMENT CHARTED. MEDICATION CHARTED. LFA IV. NIH: 19. RT SIDE IS FLACCID. FERNANDO. TUBE FEEDING: JEVITY 1.5 AT 40/ 55 GOAL. 200 ML FLUSHES Q4. PT HAS ACCESS TO HIS LT HAND AND WILL PULL OFF LINEN AND LIDOCAINE PATCHES. SINUS RHYTHM. PT TRANSFERRED TO 439. MED SURG.
[2020-05-17 03:53] VITALS: BP 148/91
--- NOTE | 2020-05-17 04:26 | NUR ---
UNABLE TO ASSESS IF PATIENT IS ALERT TO SELF. AT TIMES HE WILL LOOK AT YOU WHEN YOU SPEAK, HOWEVER, NO RESPONSE IS GIVEN. PATIENT IS COOPERATIVE WITH CARE. TUBE FEEDING INFUSING W/O RESIDUAL DURING THE NIGHT - INCREASED TO 45ML WITH GOAL OF 55ML/HR. FERNANDO TO D/D WITH YELLOW URINE. MEDS ARE CRUSHED AND ADMINISTERED THROUGH PEG TUBE. RIGHT SIDE REMAINS FLACCID. SCD'S IN PLACE. NON VERBAL. WILL MONITOR.
[2020-05-17 07:15] VITALS: BP 144/96
--- NOTE | 2020-05-17 10:01 | NUR ---
Assumed care of pt at 0700. On tube feedings. Possible hospice. IV antibiotic infusing. Chronic left knee pain. Pt does not appear in pain. Fall precautions in place. Will continue to monitor.
--- NOTE | 2020-05-17 15:57 | NUR ---
Pt now on comfort measures. [facility] referral and request for hospice house eval faxed and called to intake. Son's contact information provided. DNR on chart. Support provided.
[2020-05-17 16:50] VITALS: BP 157/100
[2020-05-17 20:07] VITALS: BP 158/110
--- NOTE | 2020-05-17 23:47 | NUR ---
ASSESSMENT COMPLETED. PT IS AWAKE. LOOKS AROUND. REPOSITIONING PROVIDED. PT WAS WET, SO FERNANDO CARE PROVIDED AND I MADE SURE ITS WORKING RIGHT. DARK YELLOW U/O. PT WAS UNDRESSING AND TRYING TO FIDDLE WITH THE PEG TUBE, ROXANOL GIVEN FOR PAIN. ORAL CARE PROVIDED.RIGHT NOW PT IS WIDE AWAKE. APPEARS TO BE IN NO DISTRESS. WILL CONTINUE WITH POC THRO SHIFT.
[2020-05-18 07:32] VITALS: BP 191/114
--- NOTE | 2020-05-18 09:54 | NUR ---
ON-GOING ASSESSMENT: CM REVIEWED CHART AND SPOKE WITH ATTENDING. NATALY FROM HOSPICE HOUSE CAME OUT TO EVALUATE AND SHE REPORTS PT DOES NOT QUALIFY FOR THE HOUSE AT THIS TIME AND HE LOOKS COMFORTABLE AND NOT MANAGING MUCH SYMTPOMS. CM NOTIFIED BEDSIDE RN AND ATTENDING. PLANS ARE TO KEEP PATIENT ANOTHER 1-2 DAYS TO SEE HOW PT DOES AND POSSIBLE REEVALUATE FOR THE HOUSE THEN. CM NOTIFIED PTS SON YANETH TO UPDATE. CM WILL CONTINUE TO FOLLOW TO ASSIST NEEDED.
--- NOTE | 2020-05-18 11:38 | NUR ---
Assumed care of pt at 0700. pt on comfort care. Has removed PEG tube nd IV overnight. Provider notified. Nurse talked to nursing electronic coils supervisor and ok's more visitors per hospital policy. Family notified. [facility] evaluated and was not accepted. Guillaume catheter in place. Pt seems comfortable and in no distress. Fall precautions in place. Will continue to monitor.
[2020-05-18 16:27] VITALS: BP 190/115
[2020-05-18 19:10] VITALS: BP 162/109
--- NOTE | 2020-05-19 03:20 | NUR ---
ASSESSED AT START OF SHIFT. PT AWAKE NON VERBAL DUE TO TROKE. REPOSITIONED FOR COMFORT. FOLLEY CATH IN PLACE. PT ON COMFORT CARE. NO FURTHER SIGNS OF DISTRESS WILL CONT WITH POC TILL EOS. FALL PRECAUTIONS MAINTAINED
[2020-05-19 03:53] VITALS: BP 149/99
[2020-05-19 07:05] VITALS: BP 114/63
[2020-05-19 07:20] VITALS: BP 149/101
--- NOTE | 2020-05-19 15:04 | NUR ---
ON-GOING ASSESSMENT: CM REVIEWED CHART AND SPOKE WITH PTS SON YANETH. PATIENT WAS EVALUATED FOR HOSPICE HOUSE YESTERDAY AND DID NOT QUALIFY. CM SPOKE WITH PTS SON YANETH WHO REPORTS THAT HE AND HIS FAMILY CANNOT PROVIDE 24/7 CARE TO PATIENT AND THEY DO NOT WANT HIM TO GO TO LTC DUE TO NOT BEING ABLE TO VISIT. JAMIE SPOKE WITH NATALY FLORES AT [facility] WHO REPORTS THEY HAVE A RESIDENTIAL BED AVAILABLE FOR PATIENT WHERE FAMILY WOULD PAY 300/DAY UNTIL PT WOULD QUALIFY FOR GIP. SHE REPORTS THEY CAN RE-EVAL DAILY FOR GIP. SON REPORTS HE IS AGREEABLE WITH THIS PLAN AND FOR PT TO DISCHARGE TO [facility] TODAY. CM NOTIFIED ATTENDING. JAMIE SPOKE WITH NATALY AT [facility] WHO REPORTS PT CAN TRANSFER AT ANY TIME. CM COMPLETED [facility] FORM AND PLACED IT ON THE CHART. TRANSPORTATION HAS BEEN ARRANGED FOR 1530. JAMIE NOTIFIED PTS FAMILY AND BEDSIDE RN. NUMBER FOR REPORT IS [phone]. CM FAXED D/C ORDERS TO [facility] AND CONFIRMED THEY RECEIVED IT. OUTSIDE DNR IS ON FRONT OF CHART ALONG WITH DISCHARGE PAPERWORK. PTS DAUGHTER WAS ALSO AT THE BEDSIDE AND CM CONFIRMED D/C INFORMATION WITH HER. NO FURTHER NEEDS AT THIS TIME.
[2020-05-19 16:00] VITALS: BP 160/123
--- NOTE | 2020-05-19 16:29 | NUR ---
PT REMAINS ON COMFORT CARE. FERNANDO INTACT, TRANSPORTATION WILL TAKE PT TO HOSPICE HOUSE. BELONGINGS PACKED AND SENT WITH PT.
== END 2020-05-19 16:32 | disposition hospice, home (50) | DRG 871 ==
LOC: ER 15:14 → 2N 20:10 → EROBS 20:10 → 2N 22:02 → 4S 05-16 13:06
PROVIDERS: Anesthesiology; Emergency Medicine; Internal Medicine; Nurse Practitioner Family; ADMIT Hospitalist; ATTEND Hospitalist
PROC: 0DH68UZ Insertion of Feeding Device into Stomach, Via Natural or Artificial Opening Endoscopic (ICD-10-PCS; principal; 2020-05-10)
DX: A41.59 Other Gram-negative sepsis (principal); N17.0 Acute kidney failure with tubular necrosis; J69.0 Pneumonitis due to inhalation of food and vomit; I63.512 Cerebral infarction due to unspecified occlusion or stenosis of left middle cerebral artery; G81.91 Hemiplegia, unspecified affecting right dominant side; E87.0 Hyperosmolality and hypernatremia; R47.01 Aphasia; I65.21 Occlusion and stenosis of right carotid artery; I10 Essential (primary) hypertension; G25.81 Restless legs syndrome; R13.10 Dysphagia, unspecified; Z60.2 Problems related to living alone; E78.5 Hyperlipidemia, unspecified; E87.6 Hypokalemia; Z66 Do not resuscitate; Z51.5 Encounter for palliative care; Z20.828 Contact with and (suspected) exposure to other viral communicable diseases; Z79.82 Long term (current) use of aspirin; Z79.899 Other long term (current) drug therapy; Z28.21 Immunization not carried out because of patient refusal
CPT/HCPCS: 10081; 10100; 10195; 62110; 62900; 70005